=== PATIENT | male | born 1970 | race Caucasian/White ===

== ENCOUNTER 2023-09-17 02:33 | Inpatient (IN) | payer OTHER ==
[2023-09-17] MEDS ORDERED: HYDROmorphone 0.5 MG/0.5 ML SYRINGE IVP STA (03:08)
[2023-09-17] MEDS ORDERED: SODIUM CHLORIDE 0.9% 1,000 ML IV ONE (03:08)
[2023-09-17] MEDS ORDERED: ONDANSETRON 4 MG/2 ML VIAL IVP STA (03:08)
--- NOTE | 2023-09-17 03:11 | ED ---
General Adult HPI - General Chief complaint: Abdominal Pain Stated complaint: Abdominal pain Time Seen by Provider: 09/17/23 02:51 Source: patient, RN notes reviewed, old records reviewed Mode of arrival: ambulatory Limitations: no limitations - History of Present Illness Initial comments: 53-year-old male presenting for evaluation of right-sided abdominal pain for the past 2 days. Patient has had multiple episodes of vomiting and chills associated with this pain. Denies dysuria or hematuria. - Related Data Allergies Allergy/AdvReac Type Severity Reaction Status Date / Time Penicillins Allergy Unknown Verified 09/17/23 02:46 Childhood Review of Systems ROS Statement: Those systems with pertinent positive or pertinent negative responses have been documented in the HPI. ROS Other: All systems not noted in ROS Statement are negative. Past Medical History Past Medical History: No Reported History History of Any Multi-Drug Resistant Organisms: None Reported Past Surgical History: No Surgical Hx Reported Past Psychological History: No Psychological Hx Reported Smoking Status: Current every day smoker Past Alcohol Use History: Daily Past Drug Use History: None Reported General Exam Limitations: no limitations General appearance: alert, in no apparent distress Head exam: Present: atraumatic, normocephalic Eye exam: Present: normal appearance, PERRL ENT exam: Present: normal exam Neck exam: Present: normal inspection. Absent: tenderness, meningismus Respiratory exam: Present: normal lung sounds bilaterally. Absent: respiratory distress Cardiovascular Exam: Present: regular rate, normal rhythm GI/Abdominal exam: Present: soft, tenderness (Right flank and right lower quadrant tenderness). Absent: distended Extremities exam: Present: normal inspection Neurological exam: Present: alert, oriented X3, CN II-XII intact. Absent: motor sensory deficit Psychiatric exam: Present: normal affect, normal mood Skin exam: Present: warm, dry, intact. Absent: cyanosis, diaphoretic Course Vital Signs 09/17/23 02:44 Temperature 97.9 F Pulse Rate 80 Respiratory 18 Rate Blood Pressure 99/68 O2 Sat by Pulse 96 Oximetry Medical Decision Making - Medical Decision Making Was pt. sent in by a medical professional or institution (, PA, ADJUNCT PHYSICAL EDUCATION INSTRUCTOR, urgent care, hospital, or [facility]...) When possible be specific @ -No Did you speak to anyone other than the patient for history (EMS, parent, family, police, friend...)? What history was obtained from this source @ -No Did you review nursing and triage notes (agree or disagree)? Why? @ -I reviewed and agree with nursing and triage notes Were old charts reviewed (outside hosp., previous admission, EMS record, old EKG, old radiological studies, urgent care reports/EKG's, [facility] records)? Report findings @ -No old charts were reviewed Differential Diagnosis (chest pain, altered mental status, abdominal pain women, abdominal pain men, vaginal bleeding, weakness, fever, dyspnea, syncope, headache, dizziness, GI bleed, back pain, seizure, CVA, palpatations, mental health, musculoskeletal)? @ Differential Abdominal Pain Men: Appendicitis, cholecystitis, diverticulosis, ischemic bowel, pancreatitis, hepatitis, UTI, gastroenteritis, AAA, incarcerated hernia, bowel obstruction, constipation, inflammatory bowel, hepatitis, peptic ulcer disease, splenic infarction, perforated viscus, testicular torsion, this is not meant to be an all-inclusive list EKG interpreted by me (3pts min.). @ -Sinus rhythm with first-degree AV block rate of 80, FL interval 219, QRS duration 92, QTC 392, no ST segment elevation. X-rays interpreted by me (1pt min.). @ -None done CT interpreted by me (1pt min.). @ -[CT of the abdomen and pelvis showing acute appendicitis with fat stranding U/S interpreted by me (1pt. min.). @ -None done What testing was considered but not performed or refused? (CT, X-rays, U/S, labs)? Why? @ -None What meds were considered but not given or refused? Why? @ -None Did you discuss the management of the patient with other professionals (professionals i.e. , PA, ADJUNCT PHYSICAL EDUCATION INSTRUCTOR, lab, RT, psych nurse, perinatal social worker, exercise instruct, teacher, security police officer, rn case management)? Give summary @ -Dr. De La Vega Was smoking cessation discussed for >3mins.? @ -No Was critical care preformed (if so, how long)? @ -No Were there social determinants of health that impacted care today? How? (Homelessness, low income, unemployed, alcoholism, drug addiction, transportation, low edu. Level, literacy, decrease access to med. care, intermediate, rehab)? @ -No Was there de-escalation of care discussed even if they declined (Discuss DNR or withdrawal of care, Hospice)? DNR status @ -No What co-morbidities impacted this encounter? (DM, HTN, Smoking, COPD, CAD, Cancer, CVA, ARF, Chemo, Hep., AIDS, mental health diagnosis, sleep apnea, morbid obesity)? @ -[Alcohol use Was patient admitted / discharged? Hospital course, mention meds given and route, prescriptions, significant lab abnormalities, going to OR and other pertinent info. @ -53-year-old male with right lower quadrant abdominal pain for the past 2 days, anorexia, and nausea vomiting. Patient has had chills. Workup does reveal significant leukocytosis, he has a lactic acid. CT confirms acute appendicitis. Patient started on antibiotics, case discussed with Dr. De La Vega who will admit. Undiagnosed new problem with uncertain prognosis? @ -No Drug Therapy requiring intensive monitoring for toxicity (Heparin, Nitro, Insulin, Cardizem)? @ -No Were any procedures done? @ -No Diagnosis/symptom? @Acute appendicitis Acute, or Chronic, or Acute on Chronic? @ -[Acute Uncomplicated (without systemic symptoms) or Complicated (systemic symptoms)? @ -default Side effects of treatment? @ -No Exacerbation, Progression, or Severe Exacerbation? @ -No Poses a threat to life or bodily function? How? (Chest pain, [place], VA, pneumonia, PE, COPD, DKA, ARF, appy, cholecystitis, CVA, Diverticulitis, Homicidal, Suicidal, threat to staff... and all critical care pts) @ -Yes, sepsis - Lab Data Result diagrams: 09/17/23 03:20 09/17/23 03:20 Lab Results 09/17/23 09/17/23 09/17/23 Range/Units 03:20 03:20 03:20 WBC 20.4 H (3.8-10.6) k/uL RBC 4.71 (4.30-5.90) m/uL Hgb 14.9 (13.0-17.5) gm/dL Hct 43.6 (39.0-53.0) % MCV 92.7 (80.0-100.0) fL MCH 31.7 (25.0-35.0) pg MCHC 34.2 (31.0-37.0) g/dL RDW 13.1 (11.5-15.5) % Plt Count 145 L (150-450) k/uL MPV 7.8 Neutrophils % 92 % Lymphocytes % 3 % Monocytes % 4 % Eosinophils % 1 % Basophils % 0 % Neutrophils # 18.8 H (1.3-7.7) k/uL Lymphocytes # 0.6 L (1.0-4.8) k/uL Monocytes # 0.7 (0-1.0) k/uL Eosinophils # 0.1 (0-0.7) k/uL Basophils # 0.0 (0-0.2) k/uL PT 11.4 (10.0-12.5) sec INR 1.1 (<1.2) APTT 26.3 (22.0-30.0) sec Sodium (137-145) mmol/L Potassium (3.5-5.1) mmol/L Chloride (98-107) mmol/L Carbon Dioxide (22-30) mmol/L Anion Gap mmol/L BUN (9-20) mg/dL Creatinine (0.66-1.25) mg/dL Est GFR (CKD-EPI)AfAm (>60 ml/min/1.73 sqM) Est GFR (CKD-EPI)NonAf (>60 ml/min/1.73 sqM) Glucose (74-99) mg/dL Plasma Lactic Acid Orion (0.7-2.0) mmol/L Calcium (8.4-10.2) mg/dL Total Bilirubin (0.2-1.3) mg/dL AST (17-59) U/L ALT (4-49) U/L Alkaline Phosphatase (38-126) U/L Total Protein (6.3-8.2) g/dL Albumin (3.5-5.0) g/dL Amylase (30-110) U/L Lipase (23-300) U/L Urine Color Light Brown Urine Appearance Clear (Clear) Urine pH 5.5 (5.0-8.0) Ur Specific Weston >1.030 (1.001-1.035) Urine Protein 1+ (Negative) Urine Glucose (UA) Negative (Negative) Urine Ketones Negative (Negative) Urine Blood Small (Negative) Urine Nitrite Negative (Negative) Urine Bilirubin 1+ (Negative) Urine Urobilinogen <2.0 (<2.0) mg/dL Ur Leukocyte Esterase Negative (Negative) Urine RBC 2 (0-5) /hpf Urine WBC 2 (0-5) /hpf Ur Squamous Epith Cells 1 (0-4) /hpf Urine Bacteria Rare H (None) /hpf Urine Mucus Occasional H (None) /hpf 09/17/23 09/17/23 Range/Units 03:20 03:20 WBC (3.8-10.6) k/uL RBC (4.30-5.90) m/uL Hgb (13.0-17.5) gm/dL Hct (39.0-53.0) % MCV (80.0-100.0) fL MCH (25.0-35.0) pg MCHC (31.0-37.0) g/dL RDW (11.5-15.5) % Plt Count (150-450) k/uL MPV Neutrophils % % Lymphocytes % % Monocytes % % Eosinophils % % Basophils % % Neutrophils # (1.3-7.7) k/uL Lymphocytes # (1.0-4.8) k/uL Monocytes # (0-1.0) k/uL Eosinophils # (0-0.7) k/uL Basophils # (0-0.2) k/uL PT (10.0-12.5) sec INR (<1.2) APTT (22.0-30.0) sec Sodium 134 L (137-145) mmol/L Potassium 4.2 (3.5-5.1) mmol/L Chloride 105 (98-107) mmol/L Carbon Dioxide 20 L (22-30) mmol/L Anion Gap 9 mmol/L BUN 26 H (9-20) mg/dL Creatinine 1.09 (0.66-1.25) mg/dL Est GFR (CKD-EPI)AfAm 89 (>60 ml/min/1.73 sqM) Est GFR (CKD-EPI)NonAf 77 (>60 ml/min/1.73 sqM) Glucose 117 H (74-99) mg/dL Plasma Lactic Acid Orion 1.2 (0.7-2.0) mmol/L Calcium 8.7 (8.4-10.2) mg/dL Total Bilirubin 4.6 H (0.2-1.3) mg/dL AST 110 H (17-59) U/L ALT 268 H (4-49) U/L Alkaline Phosphatase 142 H (38-126) U/L Total Protein 6.7 (6.3-8.2) g/dL Albumin 3.8 (3.5-5.0) g/dL Amylase 37 (30-110) U/L Lipase 37 (23-300) U/L Urine Color Urine Appearance (Clear) Urine pH (5.0-8.0) Ur Specific Weston (1.001-1.035) Urine Protein (Negative) Urine Glucose (UA) (Negative) Urine Ketones (Negative) Urine Blood (Negative) Urine Nitrite (Negative) Urine Bilirubin (Negative) Urine Urobilinogen (<2.0) mg/dL Ur Leukocyte Esterase (Negative) Urine RBC (0-5) /hpf Urine WBC (0-5) /hpf Ur Squamous Epith Cells (0-4) /hpf Urine Bacteria (None) /hpf Urine Mucus (None) /hpf Disposition Clinical Impression: Acute appendicitis Disposition: ADMITTED IP TO THIS [facility] Condition: Stable Is patient prescribed a controlled substance at d/c from ED?: No Time of Disposition: 06:10
[2023-09-17 03:46] LABS: Basophils % (A) 0 %; Eosinophils # (A) 0.1 k/uL (0-0.7); Eosinophils % (A) 1 %; HCT 43.6 % (39.0-53.0); HGB 14.9 gm/dL (13.0-17.5); Lymphocytes # (A) 0.6 k/uL (1.0-4.8); Lymphocytes % (A) 3 %; MCH 31.7 pg (25.0-35.0); MCHC 34.2 g/dL (31.0-37.0); MCV 92.7 fL (80.0-100.0); Mean Platelet Volume 7.8; Monocytes # (A) 0.7 k/uL (0-1.0); Monocytes % (A) 4 %; Neutrophils # (A) 18.8 k/uL (1.3-7.7); Neutrophils % (A) 92 %; Platelet Count 145 k/uL (150-450); RBC 4.71 m/uL (4.30-5.90); RDW 13.1 % (11.5-15.5); WBC 20.4 k/uL (3.8-10.6)
[2023-09-17 03:57] LABS: INR 1.1 (<1.2); Partial Thromboplastin Time 26.3 sec (22.0-30.0); Prothrombin Time 11.4 sec (10.0-12.5)
[2023-09-17 04:02] LABS: ALT 268 U/L (4-49); AST 110 U/L (17-59); African American GFR (CKD) 89 (>60 ml/min/1.73 sqM); Albumin 3.8 g/dL (3.5-5.0); Alkaline Phosphatase 142 U/L (38-126); Amylase 37 U/L (30-110); Blood Urea Nitrogen 26 mg/dL (9-20); Calcium 8.7 mg/dL (8.4-10.2); Carbon Dioxide 20 mmol/L (22-30); Glucose 117 mg/dL (74-99); Lipase 37 U/L (23-300); Non-African American GFR(CKD) 77 (>60 ml/min/1.73 sqM); Total Bilirubin 4.6 mg/dL (0.2-1.3); Total Protein 6.7 g/dL (6.3-8.2)
[2023-09-17 04:23] LABS: Appearance,Urine Clear (Clear); Bilirubin,Urine 1+ (Negative); Blood,Urine Small (Negative); Color,Urine Light Brown; Glucose,Urine (UA) Negative (Negative); Ketones,Urine Negative (Negative); Leukocyte Esterase,Urine Negative (Negative); Nitrite,Urine Negative (Negative); PH, Urine 5.5 (5.0-8.0); Protein,Urine 1+ (Negative); Specific Gravity,Urine >1.030 (1.001-1.035); Urobilinogen,Urine <2.0 mg/dL (<2.0)
[2023-09-17 04:27] LABS: Bacteria,Urine Rare /hpf; Mucus,Urine Occasional /hpf; RBC,Urine 2 /hpf (0-5); Squamous Epithelial Cell,Urine 1 /hpf (0-4); WBC,Urine 2 /hpf (0-5)
[2023-09-17 04:50] LABS: Anion Gap 9 mmol/L; Chloride 105 mmol/L (98-107); Potassium 4.2 mmol/L (3.5-5.1); Sodium 134 mmol/L (137-145)
[2023-09-17] MEDS ORDERED: LEVOFLOXACIN 500MG-D5W PMX 500 MG in DEXTROSE/WATER 1 100ML.BAG IVPB STA (05:50)
[2023-09-17] MEDS ORDERED: metroNIDAZOLE-NS PMX 500 MG in SALINE 1 100ML.BAG IVPB STA (05:50)
--- NOTE | 2023-09-17 05:51 | CT ---
EXAMINATION TYPE: CT abdomen pelvis w con DATE OF EXAM: 09/17/2023 COMPARISON: HISTORY: Right lower quadrant abdominal pain CT DLP: 692.4 mGycm, Automated Exposure Control for Dose Reduction was Utilized. CONTRAST: CT scan of the abdomen and pelvis is performed without oral and with IV Contrast, patient injected wi th 100 mL of Isovue 300. FINDINGS: LUNG BASES: Dependent and linear opacity in both lower lungs is consistent with atelectasis and/or sc arring. LIVER/GB: Liver is heterogeneously hypodense consistent with fatty infiltrative hepatocellular diseas e. PANCREAS: No significant abnormality is seen. SPLEEN: No significant abnormality is seen. ADRENALS: No significant abnormality is seen. KIDNEYS: Incidental 1.9 cm exophytic simple appearing cyst from the left kidney laterally lower pole level axial image 50. BOWEL: Terminal ileum appears within normal limits axial image 55. The appendix is best seen coronal image 43 and is dilated up to 11 mm ascending from the cecum. There is mild to moderate ill-defined f luid and fat stranding at this level. No well-formed fluid collection or abscess is seen. No free or mesenteric air is noted. PROSTATE/SEMINAL VESICLES: No gross abnormality seen. LYMPH NODES: No greater than 1cm abdominal or pelvic lymph nodes are appreciated. OSSEOUS STRUCTURES: Moderate to severe narrowing and spurring of both hip joints is present and more prominent in the left hip. OTHER: No significant additional abnormality is seen. IMPRESSION: CT findings consistent with uncomplicated acute appendicitis as detailed above. Critical results communicated to emergency room physician via telephone at time of dictation.
[2023-09-17] MEDS ORDERED: SODIUM CHLORIDE 0.9% 1,000 ML IV SCH (06:00)
[2023-09-17] MEDS ORDERED: ONDANSETRON 4 MG/2 ML VIAL IVP PRN (06:08)
[2023-09-17] MEDS ORDERED: NALOXONE 0.4 MG/ML 1 ML VIAL IV PRN (06:08)
[2023-09-17] MEDS ORDERED: SODIUM CHLORIDE 0.9% 2,000 ML IV ONE (08:31)
[2023-09-17] MEDS ORDERED: diphenhydrAMINE 50 MG/ML 1 ML VIAL IVP PRN (08:34)
[2023-09-17] MEDS ORDERED: metroNIDAZOLE-NS PMX 500 MG in SALINE 1 100ML.BAG IVPB SCH (09:00)
[2023-09-17] MEDS ORDERED: BUPIVACAIN-EPI 0.25%-1:200,000 30 ML VIAL SQ ONE (10:08)
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
[2023-09-17] MEDS ORDERED: LIDOCAINE 1% INJ 10MG/ML (20 ML MDV) ONE (10:20)
[2023-09-17] MEDS ORDERED: GLYCOPYRROLATE 0.2 MG/ML 2 ML VIAL ONE (10:20)
[2023-09-17] MEDS ORDERED: fentaNYL (PF) 50 MCG/ML 2 ML AMP ONE (10:20)
[2023-09-17] MEDS ORDERED: NEOSTIGMINE 1 MG/ML 10 ML VIAL ONE (10:20)
[2023-09-17] MEDS ORDERED: SUCCINYLCHOLINE CHLORIDE 200 MG/10 ML VIAL IV ONE (10:20)
[2023-09-17] MEDS ORDERED: ROCURONIUM 10 MG/ML (5 ML VIAL) IV ONE (10:20)
[2023-09-17] MEDS ORDERED: IV FLUID CONTINUATION 1,000 ML IV ONE (10:20)
[2023-09-17] MEDS ORDERED: PROPOFOL 10 MG/ML 20 ML VIAL IV ONE (10:20)
[2023-09-17] MEDS ORDERED: MIDAZOLAM 2 MG/2 ML VIAL ONE (10:20)
[2023-09-17] MEDS ORDERED: LACTATED RINGERS 1,000 ML IV ONE (10:56)
[2023-09-17] MEDS ORDERED: HYDROmorphone 1 MG/ML 1 ML SYRINGE IVP PRN (12:14)
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
[2023-09-17] MEDS ORDERED: LORazepam 1 MG TAB PO PRN (13:39)
[2023-09-17] MEDS ORDERED: THIAMINE 100 MG/ML 2 ML VIAL IM STA (13:39)
[2023-09-17] MEDS ORDERED: LORazepam 2 MG/ML INJ IV PRN ×3 (13:39)
[2023-09-17] MEDS ORDERED: LORazepam 0.5 MG TAB PO PRN (13:39)
[2023-09-17] MEDS: metroNIDAZOLE-NS PMX 500 MG in SALINE 1 100ML.BAG IVPB SCH ×3 (13:59→23:51)
[2023-09-17] MEDS: HYDROmorphone 0.5 MG/0.5 ML SYRINGE IVP PRN (14:18)
[2023-09-17] MEDS: KETOROLAC 15 MG/ML 1 ML VIAL IVP SCH ×2 (17:19→23:51)
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
[2023-09-17] MEDS: HEPARIN SODIUM,PORCINE 5,000 UNIT/ML 1 ML VIAL SQ SCH (21:25)
[2023-09-18] MEDS: KETOROLAC 15 MG/ML 1 ML VIAL IVP SCH ×4 (05:26→23:07)
[2023-09-18] MEDS: metroNIDAZOLE-NS PMX 500 MG in SALINE 1 100ML.BAG IVPB SCH (05:27)
[2023-09-18] MEDS: PANTOPRAZOLE 40 MG/10 ML VIAL IV SCH (07:54)
[2023-09-18 09:42] LABS: Magnesium 2.1 mg/dL (1.5-2.4)
[2023-09-18] MEDS: THIAMINE 100 MG TAB PO SCH (09:42)
[2023-09-18] MEDS: NICOTINE 21MG/24HR PATCH TRANSDERM SCH (09:42)
[2023-09-18] MEDS: MULTIVITAMINS, THERA 1 EACH TAB PO SCH (09:42)
[2023-09-18] MEDS: FOLIC ACID 1 MG TAB PO SCH (09:42)
[2023-09-18] MEDS: HEPARIN SODIUM,PORCINE 5,000 UNIT/ML 1 ML VIAL SQ SCH ×2 (09:42→20:51)
[2023-09-18 09:45] LABS: ALT 108 U/L (10-49); AST 23 U/L (14-35); Albumin 3.2 d/dL (3.8-4.9); Albumin/Globulin Ratio 1.39 Ratio (1.60-3.17); Alkaline Phosphatase 122 U/L (41-126); BUN/Creat Ratio 17.78 Ratio (12.00-20.00); Calcium 8.3 mg/dL (8.7-10.3); Carbon Dioxide 21.3 mmol/L (21.6-31.8); Chloride 104 mmol/L (96-109); Globulin 2.3 d/dL (1.6-3.3); Glucose 107 mg/dL (70-110); Potassium 3.9 mmol/L (3.5-5.5); Sodium 136 mmol/L (135-145); Total Bilirubin 3.3 mg/dL (0.3-1.2); Total Protein 5.5 d/dL (6.2-8.2)
[2023-09-18 09:50] LABS: Basophils # (A) 0.03 X 10*3/uL (0.00-0.10); Basophils % (A) 0.2 %; Eosinophils # (A) 0.06 X 10*3/uL (0.04-0.35); Eosinophils % (A) 0.5 %; HCT 39.5 % (39.6-50.0); HGB 13.1 d/dL (13.0-17.0); Lymphocytes # (A) 0.78 X 10*3/uL (0.90-5.00); Lymphocytes % (A) 6.4 %; MCH 30.8 pg (27.0-32.0); MCHC 33.2 d/dL (32.0-37.0); MCV 92.7 FL (80.0-97.0); Mean Platelet Volume 10.5 FL (9.5-12.2); Monocytes # (A) 0.82 X 10*3/uL (0.20-1.00); Monocytes % (A) 6.7 %; NRBC Per 100 WBC 0 X 10*3/uL (0.00-0.01); Neutrophils # (A) 10.43 X 10*3/uL (1.80-7.70); Neutrophils % (A) 85.5 %; Platelet Count 144 X 10*3/uL (140-440); RBC 4.26 X 10*6/uL (4.40-5.60); RDW 13.6 % (11.5-14.5); WBC 12.21 X 10*3/uL (4.50-10.00)
[2023-09-18] MEDS: HYDROmorphone 0.5 MG/0.5 ML SYRINGE IVP PRN ×2 (09:54→18:47)
--- NOTE | 2023-09-18 11:50 | P.PN ---
Subjective Progress Note Date: 09/18/23 Patient reports improvement of abdominal pain. Family is at bedside. WBC is improving. Intraoperative findings reviewed including phlegmon. Conservative management with antibiotics and interval appendectomy reviewed. Weight lifting restrictions described. Social work consultation for social needs, drinking, health insurance, etc. Deferred surgery in 6 weeks described. Continue hospitalization for appendicitis and elevated liver enzymes. Hepatitis panel and US liver/gallbladder for elevated LFTs. Objective - Vital Signs Vital signs: Vital Signs Temp 99.7 F H 09/18/23 07:23 Pulse 74 09/18/23 07:23 Resp 16 09/18/23 07:23 BP 126/82 09/18/23 07:23 Pulse Ox 93 L 09/18/23 07:23 FiO2 Intake & Output 09/17/23 09/18/23 09/18/23 18:59 06:59 18:59 Intake Total 1500 Output Total 20 Balance 1480 Intake: IV 1500 Output: Estimated Blood Loss 20 Other: Voiding Method Toilet Toilet # Voids 1 3 1 # Bowel Movements 0 - Labs CBC & Chem 7: 09/18/23 07:05 09/18/23 07:05 Labs: Abnormal Lab Results - Last 24 Hours (Table) 09/18/23 09/18/23 Range/Units 07:05 07:05 WBC 12.21 H (4.50-10.00) X 10*3/uL RBC 4.26 L (4.40-5.60) X 10*6/uL Hct 39.5 L (39.6-50.0) % Neutrophils # 10.43 H (1.80-7.70) X 10*3/uL Lymphocytes # 0.78 L (0.90-5.00) X 10*3/uL Carbon Dioxide 21.3 L (21.6-31.8) mmol/L Calcium 8.3 L (8.7-10.3) mg/dL Total Bilirubin 3.3 H (0.3-1.2) mg/dL ALT 108 H (10-49) U/L Total Protein 5.5 L (6.2-8.2) d/dL Albumin 3.2 L (3.8-4.9) d/dL Albumin/Globulin Ratio 1.39 L (1.60-3.17) Ratio Microbiology - Last 24 Hours (Table) 09/17/23 12:00 Gram Stain - Preliminary Appendix
[2023-09-18] MEDS: AMPICILLIN-SULBACTAM 3 GM in SODIUM CHLORIDE 0.9% 100 ML IVPB SCH ×3 (13:00→23:07)
--- NOTE | 2023-09-18 15:58 | US ---
EXAMINATION TYPE: US gallbladder DATE OF EXAM: 09/18/2023 COMPARISON: NONE CLINICAL INDICATION: Male, 53 years old with history of elevated liver enzymes, abdominal pain; Pain elevated liver enzymes limitd exam due to bowel gas TECHNIQUE: Multiple sonographic images of the right upper quadrant are obtained. FINDINGS: EXAM MEASUREMENTS: Liver Length: 20.3 cm Gallbladder Wall: .4 cm CBD: .7 cm Right Kidney: 10.9 x 6.3 x 6.5 cm Pancreas: Obscured by bowel gas Liver: Increased attenuation hepatomegaly Gallbladder: No stones seen. Evidence for sonographic Hernandez's sign: No CBD: upper limits of normal. Right Kidney: No hydronephrosis or masses seen IMPRESSION: Mild hepatomegaly.
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
[2023-09-19] MEDS: AMPICILLIN-SULBACTAM 3 GM in SODIUM CHLORIDE 0.9% 100 ML IVPB SCH ×4 (05:17→23:20)
[2023-09-19] MEDS: KETOROLAC 15 MG/ML 1 ML VIAL IVP SCH ×4 (05:18→23:20)
[2023-09-19 09:04] LABS: ALT 86 U/L (10-49); AST 21 U/L (14-35); Albumin 3.2 d/dL (3.8-4.9); Albumin/Globulin Ratio 1.33 Ratio (1.60-3.17); Alkaline Phosphatase 203 U/L (41-126); Calcium 8.2 mg/dL (8.7-10.3); Carbon Dioxide 22.2 mmol/L (21.6-31.8); Chloride 106 mmol/L (96-109); Globulin 2.4 d/dL (1.6-3.3); Glucose 102 mg/dL (70-110); Potassium 3.9 mmol/L (3.5-5.5); Sodium 137 mmol/L (135-145); Total Bilirubin 3.7 mg/dL (0.3-1.2); Total Protein 5.6 d/dL (6.2-8.2)
[2023-09-19] MEDS: THIAMINE 100 MG TAB PO SCH (09:08)
[2023-09-19] MEDS: HEPARIN SODIUM,PORCINE 5,000 UNIT/ML 1 ML VIAL SQ SCH ×2 (09:08→20:36)
[2023-09-19] MEDS: PANTOPRAZOLE 40 MG/10 ML VIAL IV SCH (09:08)
[2023-09-19] MEDS: FOLIC ACID 1 MG TAB PO SCH (09:08)
[2023-09-19] MEDS: MULTIVITAMINS, THERA 1 EACH TAB PO SCH (09:08)
[2023-09-19] MEDS: NICOTINE 21MG/24HR PATCH TRANSDERM SCH (09:09)
[2023-09-19 09:19] LABS: Basophils # (A) 0.04 X 10*3/uL (0.00-0.10); Basophils % (A) 0.5 %; Eosinophils # (A) 0.09 X 10*3/uL (0.04-0.35); HGB 12.8 d/dL (13.0-17.0); Lymphocytes % (A) 11.4 %; MCH 30.8 pg (27.0-32.0); MCHC 32.8 d/dL (32.0-37.0); MCV 93.8 FL (80.0-97.0); Mean Platelet Volume 10.9 FL (9.5-12.2); NRBC Per 100 WBC 0 X 10*3/uL (0.00-0.01); Neutrophils # (A) 6.91 X 10*3/uL (1.80-7.70); Neutrophils % (A) 78.6 %; Platelet Count 150 X 10*3/uL (140-440); RBC 4.16 X 10*6/uL (4.40-5.60); RDW 13.6 % (11.5-14.5); WBC 8.78 X 10*3/uL (4.50-10.00)
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
[2023-09-20] MEDS: KETOROLAC 15 MG/ML 1 ML VIAL IVP SCH ×3 (05:49→18:02)
[2023-09-20] MEDS: AMPICILLIN-SULBACTAM 3 GM in SODIUM CHLORIDE 0.9% 100 ML IVPB SCH ×3 (05:50→18:03)
[2023-09-20] MEDS: NICOTINE 21MG/24HR PATCH TRANSDERM SCH (10:39)
[2023-09-20] MEDS: PANTOPRAZOLE 40 MG/10 ML VIAL IV SCH (10:39)
[2023-09-20] MEDS: MULTIVITAMINS, THERA 1 EACH TAB PO SCH (10:39)
[2023-09-20] MEDS: HEPARIN SODIUM,PORCINE 5,000 UNIT/ML 1 ML VIAL SQ SCH ×2 (10:39→21:11)
[2023-09-20] MEDS: FOLIC ACID 1 MG TAB PO SCH (10:40)
[2023-09-20] MEDS: THIAMINE 100 MG TAB PO SCH (10:40)
--- NOTE | 2023-09-20 11:44 | CDI ---
Documentation Clarification Form Date: 09/20/2023 11:29:27 AM From: Bhavya Padilla Phone: [phone] Admit Date: 09/17/2023 06:08:00 AM Patient Name: Kenny Magana Visit Number: [id number] Discharge Date: ATTENTION: The Clinical Documentation Specialists (CDI) and [facility] Coding Staff appreciate your assistance in clarifying documentation. Please respond to the clarification below the line at the bottom and electronically sign. The CDI & [facility] Coding staff will review the response and follow-up if needed. Please note: Queries are made part of the Legal Health Record. If you have any questions, please contact the author of this message via ITS. Dr. De La Vega, The patient has Sepsis poa documented in the Medicine consult 09/17. Based on this information and the findings below, is there an additional diagnosis that is clinically appropriate for this patient? History/Risk Factors: 53-year-old male presented to the ED with right sided abdominal pain for two days accompanied with nausea, vomiting and chills. Medical History: Nicotine dependence and daily alcohol use 4-6 beers daily. Clinical Indicators: WBC, 09/17: 20.4 Lactic acid, 09/17: 1.4 Wound culture, 09/17: Gram negative bacilli Vitals signs, 09/17: B/P 99/68; HR 80; Temp 97.9F Oral; RR 18; SpO2 96% ra ID Consult, 09/19: Patient presented to the hospital with sepsis in the patient with low grade fever elevated white count tachycardia source is acute complicated appendicitis with possible perforation as there was evidence of peritonitis Clinically and the abdominal cultures currently growing gram negative bacilli Treatment: ID Consult: see above Antibiotics: 09/17 Levofloxacin IVPB x 1; Flagyl IVPB x 1; 09/17 09/18 Cefazolin IVPB Q8HR; 09/17 09/18 Flagyl IVPB Q6HR; 09/17 09/18 Ceftriaxone IVPB Q24HR; 09/18 Ampicillin IVPB Q6HR. IV Bolus: 09/17 0.9ns 1L IV bolus Is there an additional diagnosis that is clinically appropriate for this patient? [ ] Sepsis, present on admission [ ] Other, please specify [ ] Unable to determine SIRS Criteria: 2 or more of the following may indicate SIRS Temperature < 96.8F (36C) or > 101.0F (38.3C) Heart Rate > 90 bpm Respiratory Rate > 20 breaths/min or PaCO2 < 32 mmHg White Blood Cell Count > 12,000 or < 4,000 cells/mm3 or > 10% bands (Template Last Reviewed: November 2022) [X ] Sepsis, present on admission MTDD
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
[2023-09-20 13:21] LABS: ALT 92 U/L (4-49); AST 32 U/L (17-59); African American GFR (CKD) >90 (>60 ml/min/1.73 sqM); Albumin 3.1 g/dL (3.5-5.0); Alkaline Phosphatase 246 U/L (38-126); Anion Gap 9 mmol/L; Blood Urea Nitrogen 11 mg/dL (9-20); Calcium 8.4 mg/dL (8.4-10.2); Carbon Dioxide 19 mmol/L (22-30); Chloride 109 mmol/L (98-107); Globulin 3.2 g/dL; Glucose 113 mg/dL (74-99); Non-African American GFR(CKD) >90 (>60 ml/min/1.73 sqM); Potassium 3.9 mmol/L (3.5-5.1); Sodium 137 mmol/L (137-145); Total Bilirubin 3.8 mg/dL (0.2-1.3); Total Protein 6.3 g/dL (6.3-8.2)
[2023-09-20 13:45] LABS: Basophils % (A) 1 %; Eosinophils # (A) 0.2 k/uL (0-0.7); Eosinophils % (A) 3 %; HCT 42.1 % (39.0-53.0); HGB 14.4 gm/dL (13.0-17.5); Lymphocytes # (A) 1.5 k/uL (1.0-4.8); Lymphocytes % (A) 20 %; MCH 32.3 pg (25.0-35.0); MCHC 34.2 g/dL (31.0-37.0); MCV 94.4 fL (80.0-100.0); Monocytes # (A) 0.4 k/uL (0-1.0); Monocytes % (A) 6 %; Neutrophils % (A) 67 %; Platelet Count 176 k/uL (150-450); RBC 4.46 m/uL (4.30-5.90); WBC 7.5 k/uL (3.8-10.6)
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
--- NOTE | 2023-09-20 15:22 | P.PN ---
Subjective Progress Note Date: 09/20/23 Principal diagnosis: Acute appendicitis with phlegmon and peritonitis Patient is a 53-year-old male with no significant past medical history history of smoking presenting to the hospital for evaluation of right-sided abdominal pain, patient been diagnosed with acute appendicitis with severe phlegmon status post lysis of adhesion appendectomy was not done, On today's evaluation that is 09/20/2023, the patient remains to be afebrile , the patient is breathing comfortably on room air without need for supplemental oxygen, the patient denies any chest pain and no significant cough or sputum production, patient abdominal pain has decreased in intensity no nausea no vo miting or diarrhea. Patient did have ultrasound 0.5, creatinine 0.63, abdominal cultures with gram-n egative bacilli Objective - Vital Signs Vital signs: Vital Signs Temp 98.3 F 09/20/23 07:16 Pulse 88 09/20/23 07:16 Resp 18 09/20/23 07:16 BP 140/87 09/20/23 07:16 Pulse Ox 98 09/20/23 07:16 FiO2 Intake & Output 09/19/23 09/20/23 09/20/23 18:59 06:59 18:59 Intake Total 554 Balance 554 Intake: Intake, IV Titration 200 Amount Ampicillin-Sulbactam 3 gm 200 In Sodium Chloride 0.9% 100 ml @ 200 mls/hr IVPB Q6HR [facility] Rx#:[id number] Oral 354 Other: Voiding Method Toilet # Voids 9 4 # Bowel Movements 2 - Labs CBC & Chem 7: 09/20/23 12:49 09/20/23 12:48 Labs: Microbiology - Last 24 Hours (Table) 09/17/23 12:00 Gram Stain - Preliminary Appendix Wound Culture - Preliminary Gram Neg Bacilli Assessment and Plan (1) Acute appendicitis Current Visit: Yes Status: Acute Code(s): K35.80 - UNSPECIFIED ACUTE APPENDICITIS SNOMED Code(s): 84891457 (2) Peritonitis Current Visit: Yes Status: Acute Code(s): K65.9 - PERITONITIS, UNSPECIFIED SNOMED Code(s): 89310330 Plan: 1patient presented hospital with sepsis in this patient with a low-grade fever elevated white count tachycardia source is acute complicated appendicitis with possible perforation as there was evidence of peritonitis clinically and the abdominal cultures currently growing gram-negative bacilli with ID sensitivities pending 2-we will continue the patient on unasyn 3g every 6 hours while waiting for the culture to finalize to determine his discharge antibiotics Dictation was produced using [employer] dictation software. please excuse any grammatical, word or spelling errors. Time with Patient: Less than 30
[2023-09-21] MEDS: AMPICILLIN-SULBACTAM 3 GM in SODIUM CHLORIDE 0.9% 100 ML IVPB SCH ×5 (00:05→23:42)
[2023-09-21] MEDS: KETOROLAC 15 MG/ML 1 ML VIAL IVP SCH ×5 (00:05→23:42)
[2023-09-21] MEDS: FOLIC ACID 1 MG TAB PO SCH (08:43)
[2023-09-21] MEDS: MULTIVITAMINS, THERA 1 EACH TAB PO SCH (08:43)
[2023-09-21] MEDS: HEPARIN SODIUM,PORCINE 5,000 UNIT/ML 1 ML VIAL SQ SCH ×2 (08:43→21:48)
[2023-09-21] MEDS: PANTOPRAZOLE 40 MG/10 ML VIAL IV SCH (08:43)
[2023-09-21] MEDS: THIAMINE 100 MG TAB PO SCH (08:43)
[2023-09-21] MEDS: NICOTINE 21MG/24HR PATCH TRANSDERM SCH (08:43)
[2023-09-21 10:56] LABS: Basophils # (A) 0.07 X 10*3/uL (0.00-0.10); Basophils % (A) 0.9 %; Eosinophils # (A) 0.15 X 10*3/uL (0.04-0.35); Eosinophils % (A) 1.9 %; HCT 40.3 % (39.6-50.0); HGB 13.3 d/dL (13.0-17.0); Lymphocytes # (A) 1.73 X 10*3/uL (0.90-5.00); Lymphocytes % (A) 21.4 %; MCH 30.4 pg (27.0-32.0); MCV 92.2 FL (80.0-97.0); Mean Platelet Volume 10.5 FL (9.5-12.2); Monocytes # (A) 0.86 X 10*3/uL (0.20-1.00); Monocytes % (A) 10.7 %; NRBC Per 100 WBC 0 X 10*3/uL (0.00-0.01); Neutrophils # (A) 5.21 X 10*3/uL (1.80-7.70); Neutrophils % (A) 64.5 %; Platelet Count 222 X 10*3/uL (140-440); RBC 4.37 X 10*6/uL (4.40-5.60); RDW 13.4 % (11.5-14.5); WBC 8.07 X 10*3/uL (4.50-10.00)
[2023-09-21 11:19] LABS: ALT 81 U/L (10-49); AST 28 U/L (14-35); Albumin 3.1 d/dL (3.8-4.9); Albumin/Globulin Ratio 1.19 Ratio (1.60-3.17); Alkaline Phosphatase 232 U/L (41-126); BUN/Creat Ratio 16.43 Ratio (12.00-20.00); Bilirubin, Conjugated 1.66 mg/dL (0.20-0.40); Bilirubin,Unconjugated 0.84 mg/dL (0.20-1.00); Blood Urea Nitrogen 11.5 mg/dL (9.0-27.0); Calcium 8.7 mg/dL (8.7-10.3); Chloride 104 mmol/L (96-109); Globulin 2.6 d/dL (1.6-3.3); Glucose 92 mg/dL (70-110); Sodium 139 mmol/L (135-145); Total Bilirubin 2.5 mg/dL (0.3-1.2); Total Protein 5.7 d/dL (6.2-8.2)
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
--- NOTE | 2023-09-21 12:39 | P.PN ---
Subjective Progress Note Date: 09/21/23 Principal diagnosis: Acute appendicitis with phlegmon and peritonitis Patient is a 53-year-old male with no significant past medical history history of smoking presenting to the hospital for evaluation of right-sided abdominal pain, patient been diagnosed with acute appendicitis with severe phlegmon status post lysis of adhesion appendectomy was not done, On today's evaluation that is 09/21/2023, the patient continues to be afebrile , the patient is breathing comfortably on room air and denies any shortness of breath, the patient denies any chest pain and no cough or sputum production, patient denies abdominal pain and no nausea/vomiting or diarrhea , feeling be tter no new symptoms Patient did have white count of 8.07, creatinine 0.7, abdominal cultures with g french-negative bacilli Objective - Vital Signs Vital signs: Vital Signs Temp 98.7 F 09/21/23 07:13 Pulse 68 09/21/23 07:13 Resp 18 09/21/23 07:13 BP 124/78 09/21/23 07:13 Pulse Ox 95 09/21/23 07:13 FiO2 Intake & Output 09/20/23 09/21/23 09/21/23 18:59 06:59 18:59 Output Total 400 Balance -400 Output: Urine 400 Stool 0 Other: Voiding Method Toilet Toilet Toilet # Voids 2 - Exam GENERAL DESCRIPTION: Middle-age male lying in bed in no distress RESPIRATORY SYSTEM: Unlabored breathing , clear to auscultation anteriorly HEART: S1 S2 regular rate and rhythm , ABDOMEN: Soft , no tenderness EXTREMITIES: No edema feet - Labs CBC & Chem 7: 09/21/23 06:22 09/21/23 06:22 Labs: Abnormal Lab Results - Last 24 Hours (Table) 09/20/23 Range/Units 12:48 Chloride 109 H (98-107) mmol/L Carbon Dioxide 19 L (22-30) mmol/L Creatinine 0.63 L (0.66-1.25) mg/dL Glucose 113 H (74-99) mg/dL Total Bilirubin 3.8 H (0.2-1.3) mg/dL ALT 92 H (4-49) U/L Alkaline Phosphatase 246 H (38-126) U/L Albumin 3.1 L (3.5-5.0) g/dL Assessment and Plan (1) Acute appendicitis Current Visit: Yes Status: Acute Code(s): K35.80 - UNSPECIFIED ACUTE APPENDICITIS SNOMED Code(s): 68119438 (2) Peritonitis Current Visit: Yes Status: Acute Code(s): K65.9 - PERITONITIS, UNSPECIFIED SNOMED Code(s): 09269818 Plan: 1patient presented hospital with sepsis in this patient with a low-grade fever elevated white count tachycardia source is acute complicated appendicitis with possible perforation as there was evidence of peritonitis clinically and the abdominal cultures currently growing gram-negative bacilli with ID sensitivities pending 2-patient has shown clinical improvement and will continue with unasyn 3g every 6 hours while waiting for the culture to finalize to determine his discharge antibiotics 3-penicillin ALLERGY should be taken off the chart Dictation was produced using [employer] dictation software. please excuse any grammatical, word or spelling errors. Time with Patient: Less than 30
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
[2023-09-21 16:42] LABS: Hepatitis A Antibody IgM Nonreactive; Hepatitis B Core IgM Nonreactive; Hepatitis B Surface Antigen Nonreactive; Hepatitis C IgG Antibody Nonreactive
[2023-09-22] MEDS: AMPICILLIN-SULBACTAM 3 GM in SODIUM CHLORIDE 0.9% 100 ML IVPB SCH ×2 (05:17→12:06)
[2023-09-22] MEDS: KETOROLAC 15 MG/ML 1 ML VIAL IVP SCH ×2 (05:18→12:06)
[2023-09-22 07:40] VITALS: RESP 18
[2023-09-22] MEDS: THIAMINE 100 MG TAB PO SCH (09:48)
[2023-09-22] MEDS: HEPARIN SODIUM,PORCINE 5,000 UNIT/ML 1 ML VIAL SQ SCH (09:48)
[2023-09-22] MEDS: MULTIVITAMINS, THERA 1 EACH TAB PO SCH (09:48)
[2023-09-22] MEDS: FOLIC ACID 1 MG TAB PO SCH (09:48)
[2023-09-22] MEDS: NICOTINE 21MG/24HR PATCH TRANSDERM SCH (09:48)
[2023-09-22] MEDS: PANTOPRAZOLE 40 MG/10 ML VIAL IV SCH (09:48)
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
--- NOTE | 2023-09-22 12:21 | P.PN ---
Subjective Progress Note Date: 09/22/23 Principal diagnosis: Acute appendicitis with phlegmon and peritonitis Patient is a 53-year-old male with no significant past medical history history of smoking presenting to the hospital for evaluation of right-sided abdominal pain, patient been diagnosed with acute appendicitis with severe phlegmon status post lysis of adhesion appendectomy was not done, On today's evaluation that is 09/22/2023, the patient denies any fever or any chills , the patient is breathing comfortably on room air and no need for supplemental oxygen, the patient denies any chest pain or cough and no sputum production, patient denies abdominal pain and no nausea/vomiting or diarrhea , no new symptoms Patient did have white count of 8.07, creatinine 0.7 as of yesterday, abdominal cultures with E. coli and anaerobes Objective - Vital Signs Vital signs: Vital Signs Temp 98.3 F 09/22/23 07:07 Pulse 65 09/22/23 07:07 Resp 18 09/22/23 07:07 BP 137/93 09/22/23 07:07 Pulse Ox 96 09/22/23 07:07 FiO2 Intake & Output 09/21/23 09/22/23 09/22/23 18:59 06:59 18:59 Other: Voiding Method Toilet Toilet # Voids 3 2 - Exam GENERAL DESCRIPTION: Middle-age male lying in bed in no distress RESPIRATORY SYSTEM: Unlabored breathing , clear to auscultation anteriorly HEART: S1 S2 regular rate and rhythm , ABDOMEN: Soft , no tenderness EXTREMITIES: No edema feet - Labs CBC & Chem 7: 09/21/23 06:22 09/21/23 06:22 Labs: Abnormal Lab Results - Last 24 Hours (Table) 09/21/23 09/21/23 Range/Units 06:22 06:22 RBC 4.37 L (4.40-5.60) X 10*6/uL Total Bilirubin 2.5 H (0.3-1.2) mg/dL Conjugated Bilirubin 1.66 H (0.20-0.40) mg/dL ALT 81 H (10-49) U/L Alkaline Phosphatase 232 H (41-126) U/L Total Protein 5.7 L (6.2-8.2) d/dL Albumin 3.1 L (3.8-4.9) d/dL Albumin/Globulin Ratio 1.19 L (1.60-3.17) Ratio Microbiology - Last 24 Hours (Table) 09/17/23 12:00 Anaerobic Culture - Final Appendix Anaerobic Gm Negative Bacilli Anaerobic Gm Negative Bacilli#2 09/17/23 12:00 Gram Stain - Final Appendix Wound Culture - Final Escherichia coli Assessment and Plan (1) Acute appendicitis Current Visit: Yes Status: Acute Code(s): K35.80 - UNSPECIFIED ACUTE APPENDICITIS SNOMED Code(s): 65906954 (2) Peritonitis Current Visit: Yes Status: Acute Code(s): K65.9 - PERITONITIS, UNSPECIFIED SNOMED Code(s): 09107823 Plan: 1patient presented hospital with sepsis in this patient with a low-grade fever elevated white count tachycardia source is acute complicated appendicitis with possible perforation as there was evidence of peritonitis clinically and the abdominal cultures currently growing gram-negative bacilli which has been finalized as E. coli along with anaerobes 2-patient has shown clinical improvement and culture finalized with E. coli and anaerobes plan is for Rocephin 2 g daily and Flagyl 500 mg by mouth 3 times a day for 2 weeks and close outpatient follow-up PICC line has been ordered prescription provided for outpatient IV antibiotics Dictation was produced using [employer] dictation software. please excuse any grammatical, word or spelling errors. Time with Patient: Less than 30
[2023-09-22 14:12] VITALS: BMI 31.2
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
[2023-09-22] MEDS ORDERED: LIDOCAINE 1% INJ 10MG/ML (20 ML MDV) ONE (14:30)
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
[2023-09-22] MEDS ORDERED: LIDOCAINE 1% INJ 10MG/ML (20 ML MDV) SQ ONE (15:00)
[2023-09-22 15:22] VITALS: BP 133/81; PULSE 64; TEMP 98.7
--- NOTE | 2023-09-22 15:24 | IR ---
PICC LINE PLACEMENT: HISTORY: Infection requiring long-term antibiotic therapy PROCEDURE: Ultrasound and fluoroscopic guidance of PICC line placement. COMPLICATIONS: None ANESTHESIA: 1. 1% Lidocaine locally. FINDINGS/TECHNIQUE: The procedure was explained to the patient. The risks, complications, benefits and alternatives were discussed and any questions were answered. Informed consent was obtained. The patient was placed supine on the fluoroscopic table and prepped and draped in the usual sterile fash ion. Utilizing a 21 gauge needle and sonographic and fluoroscopic guidance, access in the left basi lic vein was achieved and there is placement of a 0.018 guidewire. The vein is patent. A 4-F sheath was placed over the guidewire. The guidewire and dilator were removed and a 4-F. PICC line was plac ed through the sheath with the tip at the level of the SVC. The sheath was removed, the catheter was flushed and sutured into position. The patient was stable throughout the procedure and remained sta ble upon discharge from the Department of Radiology. The vein puncture was patent under ultrasound. A amaral scale image was obtained to document patency of the vein punctured. All elements of the maximal barrier technique were utilized. FLUOROSCOPY TIME: DAP 0.187Gy cm2 IMPRESSION: Successful PICC line placement under ultrasound and fluoroscopic guidance.
--- NOTE | 2023-09-22 16:03 | P.PN ---
Subjective Progress Note Date: 09/22/23 Principal diagnosis: Elevated LFTs This 53-year-old male with no reported significant past medical history who had presented to the emergency department 09/17/2023 per abdominal pain. He had a CT of the abdomen and pelvis that was concerning for acute appendicitis. He underwent exploratory laparotomy with intended appendectomy on that same day, appendectomy was aborted due to adhesions. Patient was noted on admission to have elevation in his liver studies. He continued to have elevation although trending down. Gastroenterology was consulted for hepatitis. Patient denies any known liver disease. He states he's never been told that his liver enzymes were elevated. Denies any history of hepatitis. He does state that he has been a daily drinker for 25 years. Admits to 4 beers a day. Patient denied any right upper quadrant pain on admission or now. He has no nausea or vomiting. Denies noticing any dark urine prior to coming to the hospital. On admission t otal bilirubin 4.6 AST 110 ALT 268 alkaline phosphatase 142. Gallbladder ultrasound reported mild hepatomegaly. No gallstones seen. 09/22/2023 A shunt seen and examined today as a follow-up. Denies any right upper quadrant pain. States just some mild surgical tenderness mostly in the right lower abdomen. He's been afebrile. He remains on IV antibiotics. LFTs have been trending down. Hepatitis panel nonreactive. Objective - Vital Signs Vital signs: Vital Signs Temp 98.3 F 09/22/23 07:07 Pulse 65 09/22/23 08:00 Resp 18 09/22/23 08:00 BP 137/93 09/22/23 07:07 Pulse Ox 96 09/22/23 07:07 FiO2 Intake & Output 09/21/23 09/22/23 09/22/23 18:59 06:59 18:59 Output Total 0 Balance 0 Output: Stool 0 Other: Voiding Method Toilet Toilet Toilet # Voids 3 2 - Exam General appearance: The patient is alert, oriented, appears in no acute distress. HET: Head is normocephalic and atraumatic. Conjunctiva pink. Sclera anicteric. Neck: Supple without lymphadenopathy. Abdomen: Soft, mild right lower quadrant tenderness at surgical site, nondistended. No guarding or rigidity. Extremities: Normal skin color and turgor. No pedal edema Skin: No rashes, no jaundice Neurological: No focal deficits. Alert and oriented. - Labs CBC & Chem 7: 09/21/23 06:22 09/21/23 06:22 Labs: Microbiology - Last 24 Hours (Table) 09/17/23 12:00 Anaerobic Culture - Final Appendix Anaerobic Gm Negative Bacilli Anaerobic Gm Negative Bacilli#2 09/17/23 12:00 Gram Stain - Final Appendix Wound Culture - Final Escherichia coli Assessment and Plan (1) Elevated LFTs Narrative/Plan: 53-year-old male with no significant past medical history or surgical history presented to the emergency department was found to have acute appendicitis underwent appendectomy on 09/17/2023. On admission patient was found to have elevated LFTs at that time. CT abdomen and pelvis reported heterotrophic con tinuously hypodense liver consistent with fatty infiltrative hepatocellular disease. He also underwent gallbladder ultrasound showing no stones and hepatomegaly. Denies any previous knowledge of any elevated LFTs or liver disease. Does admit to being a daily drinker for last 25 years. Admits to 4 beers daily. Possibly etiologies include acute alcoholic hepatitis, nonalcoholic fatty liver disease, medication induced hepatitis however patient denies any new medications or recent antibiotics other than this hospitalization, or other possible etiologies. Will obtain hepatitis panel. Recommend alcohol abstinence and outpatient follow-up. Current Visit: Yes Status: Acute Code(s): R79.89 - OTHER SPECIFIED ABNORMAL FINDINGS OF BLOOD CHEMISTRY SNOMED Code(s): 030271006 (2) Acute appendicitis Current Visit: Yes Status: Acute Code(s): K35.80 - UNSPECIFIED ACUTE APPENDICITIS SNOMED Code(s): 26673433 Plan: 1. Continue symptomatic supportive care 2. Hepatitis panel ordered and reviewed 3. Recommend alcohol abstinence 4. Patient will need to follow-up with gastroenterology on 2-3 weeks after discharge Thank you for this consultation, patient is cleared from gastroenterology for discharge. Dr. Jorge L Ruiz I agree with the dictator's note, documented as a scribe by Euallia Mensah.
== END 2023-09-22 16:18 | disposition home health service (06) | DRG 853 ==
LOC: EC 02:33 → 5NMEDONC 06:08 → 4SSUR 10:45
PROVIDERS: ADMIT Surgery Plastic and Reconstructive Surgery; ATTEND Surgery Plastic and Reconstructive Surgery
PROC: 0DNW4ZZ Release Peritoneum, Percutaneous Endoscopic Approach (ICD-10-PCS; principal; 2023-09-17 09:43)
PROC: 02HV33Z Insertion of Infusion Device into Superior Vena Cava, Percutaneous Approach (ICD-10-PCS; 2023-09-22)
DX: A41.9 Sepsis, unspecified organism (principal); K35.33 Acute appendicitis with perforation, localized peritonitis, and gangrene, with abscess; E87.1 Hypo-osmolality and hyponatremia; F10.239 Alcohol dependence with withdrawal, unspecified; F17.210 Nicotine dependence, cigarettes, uncomplicated; K66.0 Peritoneal adhesions (postprocedural) (postinfection); B96.20 Unspecified Escherichia coli [E. coli] as the cause of diseases classified elsewhere; D69.6 Thrombocytopenia, unspecified; Z53.09 Procedure and treatment not carried out because of other contraindication; E66.09 Other obesity due to excess calories; Z68.31 Body mass index [BMI] 31.0-31.9, adult; R74.01 Elevation of levels of liver transaminase levels; E80.6 Other disorders of bilirubin metabolism; I44.0 Atrioventricular block, first degree; Z88.0 Allergy status to penicillin; Z71.41 Alcohol abuse counseling and surveillance of alcoholic; Z94.5 Skin transplant status
CPT/HCPCS: 36415; 36573; 74177; 76705; 80048; 80053; 80074; 80076; 81001; 82150; 83605; 83690; 83735; 85025; 85610; 85730; 87070; 87075; 87077; 87186; 87205; 93005; 96361; 96365; 96366; 96367; 96375; 99285

== ENCOUNTER 2023-10-21 13:12 | Day surgery (SDC) | payer OTHER ==
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
[~2023-10-21 13:12] MED LIST: ACETAMINOPHEN TAB 500 MG TAB PO PRN; DEXAMETHASONE SOD PHOSPHATE 4 MG/ML 1 ML VIAL IV ONE; HEPARIN SODIUM,PORCINE/PF 5,000 UNIT/0.5 ML SYRINGE SQ PRN; HYDROmorphone 0.5 MG/0.5 ML SYRINGE IVP PRN; LACTATED RINGERS 1,000 ML IV SCH; LIDOCAINE 1% (10MG/ML) FOR IV START INTRADERMA PRN; MIDAZOLAM 2 MG/2 ML VIAL IV PRN; ONDANSETRON 4 MG/2 ML VIAL IVP ONE; ONDANSETRON 4 MG/2 ML VIAL IVP PRN; metroNIDAZOLE-NS PMX 500 MG in SALINE 1 100ML.BAG IVPB PRN
[2023-10-21 13:55] LABS: Basophils # (A) 0.1 k/uL (0-0.2); Basophils % (A) 1 %; Eosinophils # (A) 0.2 k/uL (0-0.7); Eosinophils % (A) 3 %; HCT 45.6 % (39.0-53.0); HGB 15.7 gm/dL (13.0-17.5); Lymphocytes # (A) 2.3 k/uL (1.0-4.8); Lymphocytes % (A) 34 %; MCH 31.2 pg (25.0-35.0); MCHC 34.3 g/dL (31.0-37.0); MCV 90.9 fL (80.0-100.0); Mean Platelet Volume 7.3; Monocytes # (A) 0.6 k/uL (0-1.0); Monocytes % (A) 9 %; Neutrophils # (A) 3.3 k/uL (1.3-7.7); Neutrophils % (A) 50 %; Platelet Count 304 k/uL (150-450); RBC 5.02 m/uL (4.30-5.90); RDW 12.6 % (11.5-15.5); WBC 6.6 k/uL (3.8-10.6)
[2023-10-21 14:15] LABS: ALT 45 U/L (4-49); AST 22 U/L (17-59); African American GFR (CKD) >90 (>60 ml/min/1.73 sqM); Albumin 4.1 g/dL (3.5-5.0); Alkaline Phosphatase 86 U/L (38-126); Anion Gap 11 mmol/L; Blood Urea Nitrogen 14 mg/dL (9-20); Calcium 9.2 mg/dL (8.4-10.2); Carbon Dioxide 23 mmol/L (22-30); Chloride 105 mmol/L (98-107); Glucose 90 mg/dL (74-99); Non-African American GFR(CKD) >90 (>60 ml/min/1.73 sqM); Potassium 4.4 mmol/L (3.5-5.1); Sodium 139 mmol/L (137-145); Total Bilirubin 1.1 mg/dL (0.2-1.3); Total Protein 7.3 g/dL (6.3-8.2)
[2023-10-21] MEDS ORDERED: NEOSTIGMINE 1 MG/ML 10 ML VIAL ONE (15:07)
[2023-10-21] MEDS ORDERED: ROCURONIUM 10 MG/ML (5 ML VIAL) IV ONE (15:07)
[2023-10-21] MEDS ORDERED: MIDAZOLAM 2 MG/2 ML VIAL ONE (15:07)
[2023-10-21] MEDS ORDERED: LIDOCAINE 1% INJ 10MG/ML (20 ML MDV) ONE (15:07)
[2023-10-21] MEDS ORDERED: PROPOFOL 10 MG/ML 20 ML VIAL IV ONE (15:07)
[2023-10-21] MEDS ORDERED: fentaNYL (PF) 50 MCG/ML 2 ML AMP ONE (15:07)
[2023-10-21] MEDS ORDERED: KETOROLAC 15 MG/ML 1 ML VIAL ONE (15:07)
[2023-10-21] MEDS ORDERED: GLYCOPYRROLATE 0.2 MG/ML 2 ML VIAL ONE (15:07)
[2023-10-21] MEDS ORDERED: HYDROmorphone (PF) 1 MG/ML ONE (15:07)
[2023-10-21] MEDS ORDERED: SUCCINYLCHOLINE CHLORIDE 200 MG/10 ML VIAL IV ONE (15:07)
[2023-10-21] MEDS ORDERED: LIDOCAINE 2%-EPI 1:100,000 20 ML VIAL SQ ONE ×2 (15:26→15:33)
[2023-10-21] MEDS ORDERED: HYDROmorphone 0.5 MG/0.5 ML SYRINGE IVP ONE (17:22)
--- NOTE | 2023-10-21 17:22 | P.OP ---
Date of Procedure: 10/21/23 Description of Procedure: SURGEON: ANALIA DE LA VEGA MD Preoperative Diagnosis: 1. Acute appendicitis Postoperative Diagnosis: 1. Acute appendicitis, retrocecal with periappendicitis Procedure(s) Performed: 1. Robotic-assisted daVinci Xi laparoscopic appendectomy Anesthesia: GETA, local Estimated Blood Loss (ml): 5 Pathology: other (appendix) Condition: stable Disposition: floor Operative Findings: 1. Retrocecal appendicitis with redundant cecum coursing retroperitoneum towards and posterior to gallbladder. 2. Bed elevated 14-dgrees reverse trendelenberg INDICATIONS: The patient is a 53-year-old male who presents with acute appendicitis. Benefits and risks, including infection, open surgery, and bleeding for additional surgery was discussed at length. Informed consent was obtained. All questions of the patient and family were answered. DESCRIPTION: The patient was transferred to the operating room and placed in supine position. The patient had previously voided. The abdomen was then prepped and draped in standard sterile fashion as Ioban was placed along the abdomen to minimize any contamination of skin floor. After a timeout protocol was performed, attention was then brought to the left upper quadrant whereby a 0 degree 5 mm laparoscopic trocar entry was performed. The abdominal cavity was entered and insufflated to 12 mmHg pressure, which was tolerated well. Diagnostic laparoscopy demonstrated no injury to bowel, viscera or mesentery. Next a robotic 8-mm trocar was placed along the left lower quadrant, 10-cm lateral to the midline. A 12 mm port was placed along the left upper quadrant and another 8-mm port left lateral abdominal wall. Ports were placed 8 cm apart from each other including 15-20 cm away from the target anatomy of the right pelvis. The patient was then placed in Trendelenburg position, at least 14 down and right side up at least 7. The robotic da Ava XI system was primed and docked from the left side of the patient. Using atraumatic graspers and vessel sealer, the robotic system was docked and primed as described. Instruments were interchanged by the engineer second assistant including graspers, robotic stapler and vessel sealer. Next, attention was brought to identify the cecum. A systematic view within the abdominal cavity was started with the small bowel which was unremarkable. The base of the cecum was unremarkable. The appendix was retrocecal coursing towards right upper quadrant behind the ascending colon with additional dissection required. The body of the appendix was moderately dilated with moderate periappendicitis. No perforation was identified. The appendix was dissected free from its surrounding tissues. Blue 45 mm robotic staple loads were fired along the base of the appendix. The staple line was hemostatic. Hemostasis was checked prior to undocking the robot. The robot was undocked. I re-scrubbed into the case. The specimen was removed from the abdominal cavity with an Endo Catch bag through the 12 mm trocar at the left upper quadrant. All instruments and pneumoperitoneum were evacuated from the abdominal cavity. Local anesthetic was infiltrated to all wounds for postop analgesia. All incisions were also cleansed with diluted hydrogen peroxide. The incisions were closed with 4-0 Monocryl. Exofin glue was applied to the rest of the skin incisions. The patient had tolerated the procedure well. The patient was extubated successfully. The patient was transferred to the postanesthesia care unit in stable condition. Plan - Discharge Summary Discharge Rx Participant: No New Discharge Prescriptions: Continue metroNIDAZOLE [Flagyl] 500 mg PO TID #42 tab Ibuprofen [Motrin] 600 mg PO Q8HR PRN #30 tab PRN Reason: Pain Folic Acid 1 mg PO DAILY #30 tab Multivitamins, Thera [Multivitamin (formulary)] 1 each PO DAILY #30 tab Thiamine [Vitamin B-1] 100 mg PO DAILY #30 tab Ciprofloxacn 500 mg PO Q12H Discharge Medication List Folic Acid 1 mg PO DAILY #30 tab 09/22/23 [Rx] Ibuprofen [Motrin] 600 mg PO Q8HR PRN #30 tab 09/22/23 [Rx] Multivitamins, Thera [Multivitamin (formulary)] 1 each PO DAILY #30 tab 09/22/23 [Rx] Thiamine [Vitamin B-1] 100 mg PO DAILY #30 tab 09/22/23 [Rx] metroNIDAZOLE [Flagyl] 500 mg PO TID #42 tab 09/22/23 [Rx] Ciprofloxacn 500 mg PO Q12H 10/19/23 [History] Follow up Appointment(s)/Referral(s): Analia De La Vega MD [STAFF PHYSICIAN] - 10/25/23 (TELEPHONE) Patient Instructions/Handouts: Appendicitis (GEN), Laparoscopic Appendectomy (DC) Activity/Diet/Wound Care/Special Instructions: TELEHEALTH - DR WILL CALL YOU BETWEEN 8 am to 8 pm No lifting over 10 pounds in 2 weeks until Nov 04March shower. No bath tub soaks for two weeks until Nov 04 Diet as tolerated. Use Tylenol, simethicone and ibuprofen or Aleve scheduled for the next 24-48 hours for best pain relief. Use ice along incisions for today to prevent swelling. Discharge Disposition: HOME SELF-CARE
[2023-10-21 17:28] VITALS: RESP 16; TEMP 96.8
[2023-10-21 18:14] VITALS: BP 120/75; PULSE 65
== END 2023-10-21 18:15 | disposition home or self-care (01) ==
LOC: OR 13:12
PROVIDERS: ATTEND Surgery Plastic and Reconstructive Surgery
DX: K35.80 Unspecified acute appendicitis (principal); Z79.1 Long term (current) use of non-steroidal anti-inflammatories (NSAID); Z79.899 Other long term (current) drug therapy; Z87.891 Personal history of nicotine dependence; Z88.0 Allergy status to penicillin; Z98.890 Other specified postprocedural states
CPT/HCPCS: 44970; S2900; 80053; 85025; 88304

== ENCOUNTER → 2024-01-03 | Outpatient (CLI) | payer OTHER ==
--- NOTE | 2024-01-03 17:46 | CTL ---
EXAMINATION TYPE: CT Low Dose Lung DATE OF EXAM ORDERED: 01/03/2024 HISTORY: . Lung cancer screening CT DLP: 175.[address] CTDI: 4.3 mGy Automated exposure control for dose reduction was used. SCREENING VISIT: Initial COMPARISON: None TECHNIQUE: Low dose computed tomography scan was performed through the chest at 1 mm thick sections a nd reconstructed images in the coronal plane at [address] DIAGNOSTIC QUALITY: Satisfactory FINDINGS: LUNG NODULES: Present, detailed below: 1. There is a 0.7 cm nodule with indistinct borders in the anterior right upper lung field. Series 6 image 36. 2. There is a peripheral triangular density measuring 0.6 cm anterior lateral right upper lung field. Series 6 image 32. LUNGS: COPD: Severity: None Fibrosis: Severity: Lymph nodes: None Other findings: RIGHT PLEURAL SPACE: Effusion: None Calcification: Thickening: None Pneumothorax: None LEFT PLEURAL SPACE: Effusion: None Calcification: None Thickening: None Pneumothorax: None HEART: Heart Size: Normal Coronary calcification: None Pericardial effusion: None OTHER FINDINGS: Upper abdomen: Normal Bony thorax: Normal Supraclavicular region: Normal Other: Ascending thoracic aorta at the level the main pulmonary artery measures 4.0 cm. The main pul monary artery at the bifurcation measures 3.1 cm. IMPRESSION: 1. Two nodules right upper lung field. Consider additional evaluation with PET/CT. FOLLOW UP CT CHEST RECOMMENDATION: Follow-up PET/CT CT LUNG RAD: Lung-Rad 4A Suspicious
== END | disposition home or self-care (01) ==
LOC: RADCTMAIN 15:14
PROVIDERS: ATTEND Family Medicine
DX: Z12.2 Encounter for screening for malignant neoplasm of respiratory organs (principal); R91.8 Other nonspecific abnormal finding of lung field; Z87.891 Personal history of nicotine dependence
CPT/HCPCS: 71271

== ENCOUNTER → 2024-01-26 | Outpatient (CLI) | payer OTHER ==
--- NOTE | 2024-01-26 15:35 | PE ---
EXAMINATION TYPE: PET CT fusion skull to thigh DATE OF EXAM: 01/26/2024 COMPARISON: CT low-dose lung screening January 03, 2024 HISTORY: Solitary pulmonary nodule TECHNIQUE: Following the intravenous administration of 13.28 mCi of F-18 FDG, whole body images are performed from the skull base to the midthigh. Images are reviewed on the computer in the coronal, a xial, and sagittal planes. Reconstructed rotating images are created on independent workstation and reviewed on the computer. A localization and attenuation correction CT is performed in conjunction with the PET scan. Blood glucose level equals 92. SCAN: Initial Scan FINDINGS: SKULL BASE AND NECK: Heterogeneous increased uptake throughout the thyroid gland which measures uppe r limits of normal in size. Correlate for possible diffuse hyperthyroidism or goiter. CHEST, MEDIASTINUM, AND HILAR REGION: No areas of abnormal hypermetabolic uptake in the thorax. Subce ntimeter nodules remain present on axial images 110 and 116 respectively. ABDOMEN AND PELVIS: Normal excretion is seen. No hypermetabolic adrenal masses. No areas of abnormal hypermetabolic uptake. OSSEOUS STRUCTURES: No areas of abnormal hypermetabolic uptake. OTHER CT: Nasal septum is deviated to right of midline. Liver is diffusely low dense suggesting fatty infiltrative hepatocellular disease. Appendix is surgically absent. IMPRESSION: No abnormal hypermetabolic uptake to suggest neoplasm. Advise chest CT follow-up in 6-12 months time to reassess subcentimeter pulmonary nodules. Mild diffuse hypermetabolic uptake throughou t the thyroid gland raises concern for hyperthyroidism. Correlate clinically.
== END | disposition home or self-care (01) ==
LOC: RADPETMAIN 06:40
PROVIDERS: ATTEND Family Medicine
DX: R91.8 Other nonspecific abnormal finding of lung field (principal); E03.9 Hypothyroidism, unspecified
CPT/HCPCS: 78815; A9552

== ENCOUNTER → 2024-02-09 | Outpatient (CLI) | payer OTHER ==
--- NOTE | 2024-02-09 10:09 | US ---
EXAMINATION TYPE: US liver DATE OF EXAM: 02/09/2024 COMPARISON: NONE CLINICAL INDICATION: Male, 53 years old with history of R77.2 ABNORMALITY ALPHAFETOPROTEIN; elevated LFTs TECHNIQUE: Multiple sonographic images of the right upper quadrant are obtained. FINDINGS: EXAM MEASUREMENTS: Liver Length: 18.0 cm Gallbladder Wall: 0.2 cm CBD: 0.4 cm Right Kidney: 11.0x4.9x6.8 cm OIL PIT ATTENDANT NOTES: Pancreas: Tail obscured by overlying bowel gas Liver: increased size and echogenicity, no suspicious masses, dilated ducts or focal fluid collectio ns. Gallbladder: wnl Evidence for sonographic Hernandez's sign: No CBD: wnl Right Kidney: No hydronephrosis or masses seen exam limited by bowel and body habitus IMPRESSION: Hepatic steatosis with hepatomegaly. No suspicious observations. Consider MRI liver mass protocol for complete evaluation.
== END | disposition home or self-care (01) ==
LOC: RADUSWWP 08:36
PROVIDERS: ATTEND Internal Medicine Gastroenterology
DX: K76.0 Fatty (change of) liver, not elsewhere classified (principal); R16.0 Hepatomegaly, not elsewhere classified; R77.2 Abnormality of alphafetoprotein; R94.5 Abnormal results of liver function studies; R79.89 Other specified abnormal findings of blood chemistry
CPT/HCPCS: 76705

== ENCOUNTER → 2024-02-09 | Outpatient (CLI) | payer OTHER ==
--- NOTE | 2024-02-09 10:11 | US ---
EXAMINATION TYPE: US thyroid st tissue head/neck DATE OF EXAM: 02/09/2024 COMPARISON: NONE CLINICAL INDICATION: Male, 53 years old with history of R94.6,R22.0 LOCALIZED SWELLING, MASS AND LUMP , HEA; abn thyroid on PET GLAND SIZE: Right Lobe: 6.7x3.5x2.5 cm Overall Parenchyma: heterogeneous with increased color Doppler flow. Left Lobe: 4.6x2.3x2.5 cm Overall Parenchyma: heterogeneous with increased color Doppler flow. Isthmus Thickness: 1.2 cm NODULES RIGHT: # of nodules measured on right: 0 LEFT: # of nodules measured on left: 1 1. 2.0 X 1.2 x 1.3 cm, mid lateral, TIRADS Score: 3 TIRADS Category 3: Composition: Solid or almost completely solid (2 points). Echogenicity: Hyperechoic or isoechoic (1 point). Shape: Wider than tall (0 points). Margin: Smooth (0 points). Echogenic foci: None or large comet-tail artifacts (0 points) Recommendation: If >2.5cm: FNA; If >1.5cm: Follow up at 1,3,5 years ISTHMUS: # of nodules measured in the isthmus: 0 Bilateral neck scanned, no evidence of lymphadenopathy. hypoechoic, heterogenous enlarged gland with "thyroid inferno" on color doppler suggestive of Graves disease, corresponds with PET findings IMPRESSION: 1. Heterogenous thyroid gland correlate for thyroiditis. 2. Left thyroid nodule that meet criteria for follow-up.
== END | disposition home or self-care (01) ==
LOC: RADUSWWP 08:38
PROVIDERS: ATTEND Family Medicine
DX: E04.1 Nontoxic single thyroid nodule (principal); E07.89 Other specified disorders of thyroid; R22.0 Localized swelling, mass and lump, head; R94.6 Abnormal results of thyroid function studies
CPT/HCPCS: 76536

== ENCOUNTER 2024-06-22 09:23 | Day surgery (SDC) | payer OTHER ==
[~2024-06-22 09:23] MED LIST changes: -ACETAMINOPHEN TAB 500 MG TAB PO PRN; -DEXAMETHASONE SOD PHOSPHATE 4 MG/ML 1 ML VIAL IV ONE; -HEPARIN SODIUM,PORCINE/PF 5,000 UNIT/0.5 ML SYRINGE SQ PRN; -HYDROmorphone 0.5 MG/0.5 ML SYRINGE IVP PRN; -LACTATED RINGERS 1,000 ML IV SCH; -MIDAZOLAM 2 MG/2 ML VIAL IV PRN; -ONDANSETRON 4 MG/2 ML VIAL IVP ONE; -ONDANSETRON 4 MG/2 ML VIAL IVP PRN; -metroNIDAZOLE-NS PMX 500 MG in SALINE 1 100ML.BAG IVPB PRN
[2024-06-22] MEDS: IV FLUID CONTINUATION 1,000 ML IV ONE ×2 (09:50→11:28)
[2024-06-22 09:54] VITALS: TEMP 96.8
[2024-06-22] MEDS: LACTATED RINGERS 1,000 ML IV SCH (10:06)
[2024-06-22] MEDS ORDERED: LIDOCAINE 1% INJ 10MG/ML (20 ML MDV) ONE (11:29)
[2024-06-22] MEDS ORDERED: PROPOFOL 10 MG/ML 20 ML VIAL IV ONE (11:29)
--- NOTE | 2024-06-22 11:33 | P.PCN ---
Date of Procedure: 06/22/24 Procedure(s) Performed: BRIEF HISTORY: Patient is a 54-year-old pleasant white male scheduled for an elective colonoscopy as a part of screening for colon cancer. PROCEDURE PERFORMED: Colonoscopy with snare polypectomy. PREOPERATIVE DIAGNOSIS: Screening for colon cancer. IV sedation per Anesthesia. PROCEDURE: After informed consent was obtained, the patient, was brought into the endoscopy unit. IV sedation was administered by Anesthesia under continuous monitoring. Digital rectal examination was normal. Initially the Olympus CF-160 flexible video colonoscope was then inserted in the rectum, gradually advanced into the cecum without any difficulty. Careful examination was performed as the scope was gradually being withdrawn. Ileocecal valve and the appendiceal orifice were visualized and appeared normal. Prep was excellent. Mucosa of the cecum, ascending colon, transverse colon, normal. In the descending colon there was a 7 mm 9 mm flat polyp removed by cold snare polypectomy. Rest of the descending colon, sigmoid colon, and rectum appeared normal. Sigmoid diverticulosis. Retroflexion was performed in the rectum and no lesions were seen. The patient tolerated the procedure well. IMPRESSION: 7 mm and 8 mm flat descending colon polyp status post cold snare polypectomy Scattered sigmoid diverticulosis RECOMMENDATIONS: Findings of this examination were discussed with the patient as well as his family.. Was advised to follow-up with the biopsy results. If the biopsy reveals adenoma he can have repeat colonoscopy in 5 years.
[2024-06-22 11:59] VITALS: RESP 16
[2024-06-22 12:07] VITALS: BP 124/71; PULSE 67
== END 2024-06-22 12:24 ==
LOC: ORWHC2ENDO 09:23
PROVIDERS: ATTEND Internal Medicine Gastroenterology
DX: Z12.11 Encounter for screening for malignant neoplasm of colon
CPT/HCPCS: 45385; J2001; J2704; 88305

== ENCOUNTER → 2024-08-10 | Outpatient (CLI) | payer OTHER ==
--- NOTE | 2024-08-20 18:34 | CT ---
EXAMINATION TYPE: CT chest w con DATE OF EXAM: 08/10/2024 COMPARISON: PET/CT 08/10/2024 HISTORY: abnormal ct CT DLP: 649.1 mGycm, Automated exposure control for dose reduction was used. CONTRAST: Performed injected with 100 mL of Isovue 300. TECHNIQUE: Axial images were obtained at 5 mm thick sections. Reconstructed images are reviewed on [employer] computer in the coronal plane. FINDINGS: Portion of the thyroid visualized is normal. There is a 0.6 cm nodule within the periphery of the right upper lung field, series 4 image 30. Sligh tly smaller 0.5 cm nodules in the periphery of the upper outer right lung, stable from comparison. No enlarged mediastinal or hilar adenopathy is evident. The ascending aorta diameter at the level o f the main pulmonary artery is 3.8 cm. The main pulmonary artery diameter at the bifurcation is 3.[address] sections are obtained through the upper abdomen. Abdomen is essentially unremarkable. IMPRESSION: 1. Small stable nodules right anterior lateral upper lung field. Follow-up CT in 6 months is recommen ded [facility], , 08/20/2024 6:32 PM
== END | disposition home or self-care (01) ==
LOC: RADCTMAIN 16:12
PROVIDERS: ATTEND Internal Medicine Critical Care Medicine
DX: R91.8 Other nonspecific abnormal finding of lung field
CPT/HCPCS: 71260

== ENCOUNTER → 2024-11-28 | Outpatient (CLI) | payer OTHER ==
[2024-11-28 15:20] VITALS: BP 113/61; PULSE 78; RESP 18; TEMP 97.8
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
== END ==
LOC: 3 N SLEEP 14:54
PROVIDERS: ATTEND Internal Medicine
DX: G47.33 Obstructive sleep apnea (adult) (pediatric) (principal); E03.9 Hypothyroidism, unspecified; E66.9 Obesity, unspecified; G47.59 Other parasomnia; Z68.38 Body mass index [BMI] 38.0-38.9, adult; Z90.89 Acquired absence of other organs
CPT/HCPCS: 99211

== ENCOUNTER 2024-12-05 19:39 | Outpatient (CLI) | payer OTHER ==
--- NOTE | 2024-12-06 10:52 | P.PCN ---
Description of Procedure: POLYSOMNOGRAPHY REPORT PROCEDURE(S)/DATE(S): Polysomnography 12/05/2024 CLINICAL: Patient has been seen in the sleep center for evaluation of obstructive sleep apnea-hypopnea syndrome. Please see my consultation. Sleep study has been done for evaluation of patient breathing during the sleep. PROCEDURE: The standard montage for clinical polysomnography included the electroencephalogram, the electrooculogram, the mentalis surface electromyography and Lead II cardiography. The respiratory battery consisted of measurements of nasal/buccal air flow, pressure transducer measurements from nose, thoracic and/or abdominal effort and intercostal surface electromyography. Video monitoring has been done to check for any parasomnia events. Nocturnal oxyhemoglobin saturations were obtained by finger oximetry. Step-martinez titration with positive airway pressure was utilized to control the respiratory events, if necessary. RESULTS: During the diagnostic sleep study sleep efficiency was normal 89.6%. Latency to sleep onset was in short range 6.0 min. Sleep architecture showed st age NI was increased to 15.0%, Delta sleep was short 1.9%, REM sleep was normal 17.5%. Respiratory channel showed 302 obstructive apneas, 83 mixed apneas, 9 central apneas, 257 hypopneas with lowest oxygen level 50%. Total apnea hypopnea index was 93.7. Heart rate was in the range between 70 and 82, average 76. EMG showed 0 periodic limb movements per hour with 0 micro-arousals per hour. IMPRESSIONS: 1. Extremely severe obstructive sleep apnea hypopnea syndrome with extremely severe oxygen desaturation to 50%. 2. No significant periodic limb movements have been documented. Please see other impressions from consultation PLAN: 1. The patient will have PAP titration for correction of respiratory abnormalities during the sleep. 2. Losing weight program. 3. Sleep hygiene with regular time in bed for at least 7-1/2 hours. 4. No driving if feeling sleepiness. Thank you very much for allowing me to participate in the management of your patient. Sincerely, Rafael Duncan MD, PhD, FAASM. Diplomat of [place] [employer], Sleep Medicine Board by [place] [employer] Ss[employer] Developer of [facility] [place] cc: Demetria Blackman MD
== END 2024-12-06 05:40 | disposition home or self-care (01) ==
LOC: 3 N SLEEP 19:39
PROVIDERS: ATTEND Internal Medicine
DX: G47.33 Obstructive sleep apnea (adult) (pediatric) (principal); Z88.0 Allergy status to penicillin
CPT/HCPCS: 95810

== ENCOUNTER 2024-12-17 19:40 | Outpatient (CLI) | payer OTHER ==
--- NOTE | 2024-12-20 11:55 | P.PCN ---
Description of Procedure: CLINICAL: Titration with positive air pressure has been done for correction of respiratory abnormalities during sleep. DESCRIPTION OF PROCEDURE: The standard montage for clinical polysomnography included the electroencephalogram, the electrocardiogram, the mentalis surface electromyography and Lead II cardiography. The respiratory battery consisted of measurements of nasal /buccal air flow, pressure transducer measurements from the nose, thoracic and /or abdominal effort and intercostal surface electromyography. Video monitoring has been done to check for any parasomnia events. Nocturnal oxyhemoglobin saturations were obtained by finger oximetry. Step-martinez titration with positive airway pressure was utilized to control respiratory events. Raw data of sleep recording has been reviewed and is adequate. RESULTS: Sleep efficiency was normal 93.8%. Latency to sleep onset was in short range 6.0 minutes.]. Sleep architecture showed stage N1 was slightly short 3.8%, Delta sleep was significantly increased to 30.5%, REM sleep was normal and high range 26.7%. Heart rate was minimum 61 BPM, maximum 68 BPM, average 64 BPM. EMG showed 0.6 periodic limb movements per hour. PAP titration have been done with CPAP up to the pressure 11 cm H2O. Patient had problems with CPAP, switched to BPAP. BPAP titrated up to 24/19 cm H2O. The best results were at the pressure 24/19 cm H2O. Apnea hypopnea index reduced to 1.0. IMPRESSION: 1. Extremely severe obstructive sleep apnea hypopnea syndrome with apnea- hypopnea index 93.7 mostly on controle with high level of BiPAP. 2. No significant periodic limb movements have been documented. Please see other impressions from consultation. PLAN: 1. The patient will have treatment with positive air pressure equipment with the level of pressure AutoBiPAP with maximal inspiratory pressure 24 and minimal expiratory pressure 15 cm H2O and should use it every night for the whole night. 2. Watching and losing weight. 3. Sleep hygiene with regular time in bed for at least 8 hours. 4. No driving if feeling any sleepiness. 5. I will see the patient for follow up visit to explain the results of the test, recommendations, check compliance with treatment and make any necessary adjustment related to mask fitting, pressure and humidification. Thank you very much for allowing me to participate in the management of your patient. Sincerely, Rafael Duncan MD, PhD, FAASM Diplomat of [place] [employer] Sleep Medicine Board of [place] [employer] Medicine [employer]ographer [facility] [place] cc: Demetria Blackman MD
== END 2024-12-18 05:33 | disposition home or self-care (01) ==
LOC: 3 N SLEEP 19:40
PROVIDERS: ATTEND Internal Medicine
DX: G47.33 Obstructive sleep apnea (adult) (pediatric) (principal); Z88.0 Allergy status to penicillin
CPT/HCPCS: 95811

== ENCOUNTER → 2025-02-19 | Outpatient (CLI) | payer OTHER ==
--- NOTE | 2025-02-19 18:25 | CT ---
EXAMINATION TYPE: CT chest w con DATE OF EXAM: 02/19/2025 6:05 PM COMPARISON: 08/10/2024 CLINICAL INDICATION: Male, 54 years old with history of R91.8 PULM NODULES; PHH, pulmonary nodules TECHNIQUE: Multiple axial images were obtained through the chest. Sagittal and coronal reformats were created for review. MIP was performed on a separate workstation. Contrast used:100ml mL of Isovue 300 with IV Contrast (None if empty) Oral contrast used: (None if empty) CT DLP: 907.4 mGycm, Automated exposure control for dose reduction was used. FINDINGS: LUNGS/ PLEURA: No focal consolidation, pneumothorax or pleural effusion. Right upper lobe 5 mm pulmon lea nodule. Stable from 08/10/2024. Series 3 image 35. No other new or enlarging pulmonary nodules ayse ntified. AIRWAY: Patent and unremarkable. HEART: Size within normal limits. No significant coronary artery calcifications. MEDIASTINUM: No gross evidence of adenopathy. VASCULATURE: No aortic aneurysm. MUSCULOSKELETAL: No acute osseous abnormalities SOFT TISSUES/LYMPH NODES: Unremarkable. LOWER NECK: No significant findings. UPPER ABDOMEN: No significant findings. IMPRESSION: Stable pulmonary nodules. Consider yearly low-dose lung cancer screening. [facility], , 02/19/2025 6:22 PM
== END | disposition home or self-care (01) ==
LOC: RADCTMAIN 17:18
PROVIDERS: ATTEND Family Medicine
DX: R91.8 Other nonspecific abnormal finding of lung field (principal); R91.1 Solitary pulmonary nodule
CPT/HCPCS: 71260; Q9967

== ENCOUNTER → 2025-03-14 | Outpatient (CLI) | payer OTHER ==
[2025-03-14 17:01] VITALS: BP 124/81; PULSE 70; RESP 16; TEMP 97.9
--- NOTE | 2025-03-14 17:48 | P.PROGSL ---
Subjective DATE: 03/14/2025 FOLLOW UP VISIT. Patient with obstructive sleep apnea hypopnea syndrome return to sleep center for follow-up visit. Recently patient had sleep study which documented obstructive sleep apnea hypopnea syndrome. Patient was initiated on PAP therapy and today is first visit after treatment was started. I explained results of sleep studies to the patient in details. He has extremely severe sleep apnea with apnea hypopnea index 93.7. Patient was able to use PAP equipment every night for the whole night. The patient does not have significant problems with the mask, PAP pressure. Some nights no water in humidifier in the morning. [place] sleepiness scale is 2. Patient feels significantly better after starting to use CPAP equipment. [place] Sleepiness Scale during consultation was 24. I checked information from PAP unit. PAP unit pressure maximal inspiratory pressure 24, minimal expiratory pressure 15, pressure support 4, average pressure 21.5/17.5 cm H2O. Usage is 97% and 70% for more then 4 hours, average 5 hours per night. Leak is increased to 30.0 l/m. Apnea Hypopnea Index is 1.9, which is normal. MEDICATIONS: Please see below During physical exam: GENERAL: A pleasant patient without any distress. VITAL SIGNS: Please see below weight 307 pounds. HEENT: PERRLA, EOMI.low position of soft palate, [place]ati 3/4. NECK: Supple. No JVD. LUNGS: Clear to percussion and to auscultation. Good air exchange. No wheezing or rhonchi. HEART: S1, S2 regular. ABDOMEN: Soft and nontender.[] EXTREMITIES: No clubbing or cyanosis. VARNISH COOKER: Awake, alert, and oriented x3. No focal deficit. Impressions: 1. Obstructive sleep apnea-hypopnea syndrome. Patient demonstrated great compliance with treatment, benefiting from treatment. 2. Obesity. 3. Hypothyroidism. 4. Possible nasal septum deviation. 5. Status post appendectomy in 2022. I teach patient how to adjust temperature in heated humidifier. Plan: 1. Continue using PAP equipment every night for the whole night. 2. To change air filter at least 1-2 times per month. 3. PAP unit should stay lower then position of the head. 4. Advised patient to remove all remaining water from humidifier canister daily and make it dry after each usage. Refill canister with fresh distilled water before each usage. 5. Sleep hygiene with regular time in bed for at least 8 hours. 6. Precautions related to driving. No driving if feel any sleepiness. 7. I will maintain prescription for PAP supplies including mask, tube, filters. 8. Follow up visit in 8 months or earlier if patient has any problems. 9. Watching and losing weight. Thank you very much for allowing me to participate in the management of your patient. Rafael Duncan MD, PhD, FAASM. Diplomat of [place] [employer], Sleep Medicine Board by [place] [employer] Specimen Trans[employer] [facility] [place] Objective - Vital Signs Vital Signs: Vital Signs Temp 97.9 F 03/14/25 17:00 Pulse 70 03/14/25 17:00 Resp 16 03/14/25 17:00 BP 124/81 03/14/25 17:00 Pulse Ox 98 03/14/25 17:00 FiO2 Intake & Output 03/13/25 03/14/25 03/14/25 18:59 06:59 18:59 Weight 139.253 kg Home Medications: Home Medications Medication Instructions Recorded Confirmed Type Thiamine [Vitamin B-1] 100 mg PO DAILY #30 tab 09/22/23 06/22/24 Rx Levothyroxine Sodium [Levo-T] 137 mcg PO DAILY 06/21/24 11/28/24 History lisinopriL [Zestril] 10 mg PO DAILY 06/21/24 06/22/24 History
== END ==
LOC: 3 N SLEEP 16:03
PROVIDERS: ATTEND Internal Medicine
DX: G47.33 Obstructive sleep apnea (adult) (pediatric) (principal); E66.9 Obesity, unspecified; E03.9 Hypothyroidism, unspecified; Z90.49 Acquired absence of other specified parts of digestive tract; Z88.0 Allergy status to penicillin; Z99.89 Dependence on other enabling machines and devices
CPT/HCPCS: 99212